=== PATIENT | female | born 1940 | race Caucasian/White ===

== ENCOUNTER 2018-11-04 08:56 | Emergency (ER) | payer OTHER ==
[~2018-11-04] VITALS: Ht 144.8 cm; Wt 61.2 kg
== END 2018-11-04 16:14 | disposition home or self-care (01) ==
LOC: ER 08:56
DX: K29.70 Gastritis, unspecified, without bleeding (principal)

== ENCOUNTER 2020-05-02 12:00 | Emergency (ER) | payer OTHER ==
[~2020-05-02] VITALS: Ht 144.8 cm; Wt 59.0 kg
[2020-05-02] MEDS ORDERED: LISINOPRIL20 MG (13:17)
[2020-05-02] MEDS ORDERED: NAPROXEN SODIU500 M2 (13:17)
[2020-05-02] MEDS ORDERED: MAXIMUM D3325 MCG (13:18)
== END 2020-05-02 21:21 | disposition home or self-care (01) ==
LOC: ER 12:00
DX: N39.0 Urinary tract infection, site not specified (principal); R31.29 Other microscopic hematuria; Z03.818 Encounter for observation for suspected exposure to other biological agents ruled out

== ENCOUNTER 2021-10-26 14:08 | Emergency (ER) | payer OTHER ==
[~2021-10-26] VITALS: Ht 144.8 cm; Wt 54.4 kg
[~2021-10-26 14:08] MED LIST: LISINOPRIL20 MG; MAXIMUM D3325 MCG; NAPROXEN SODIU500 M2
[2021-10-26] MEDS ORDERED: MECLIZINE HCL25 MG PO (18:28)
== END 2021-10-26 18:59 | disposition home or self-care (01) ==
LOC: ER 14:08
DX: S00.83XA Contusion of other part of head, initial encounter (principal); W18.30XA Fall on same level, unspecified, initial encounter; Y92.012 Bathroom of single-family (private) house as the place of occurrence of the external cause

== ENCOUNTER 2025-07-04 14:42 | Emergency (ER) | payer OTHER ==
[~2025-07-04] VITALS: Ht 149.9 cm; Wt 44.5 kg
[~2025-07-04 14:42] MED LIST changes: +MECLIZINE HCL25 MG PO
[2025-07-04] MEDS ORDERED: ACETAMINOPHEN 500 MG GEL..CAP PO STA (15:56)
[2025-07-04] MEDS ORDERED: KETOROLAC TROMETHAMINE 30 MG VIAL IM STA (15:57)
[2025-07-04 16:37] LABS: BASO % 0.9 % (0.1-1.2); EOS # 0.26 (0.04-0.54); EOS % 3.5 % (0.7-7.0); LYMPH # 2.66 (1.18-3.74); LYMPH % 35.7 % (19.3-53.1); MEAN PLATELET VOLUME 10.40 fl (9.4-12.4); MONO # 0.49 (0.24-0.82); MONO % 6.6 % (4.7-12.5); NEUT # 3.96 (1.56-6.13); NEUT % 53.2 % (34.0-71.1); RED CELL DISTRIBUTION WIDTH 14.2 % (11.6-14.4)
[2025-07-04 16:58] LABS: BUN CREA RATIO 21.0 (7.0-25.0); CREATININE SERUM 0.68 mg/dL (0.55-1.02); GFR 82.63; GLUCOSE FASTING 94.0 mg/dL (65-100); OSMOLALITY SERUM 287.0 MOSM/KG (275-295)
[2025-07-04] MEDS ORDERED: 8HR ARTHRITIS650 M1 PO (18:26)
[2025-07-04] MEDS ORDERED: AMOX1TAB5 PO (18:26)
== END 2025-07-04 18:55 | disposition home or self-care (01) ==
LOC: ER 14:42
PROVIDERS: Student in an Organized Health Care Education/Training Program
DX: J02.9 Acute pharyngitis, unspecified (principal); K13.79 Other lesions of oral mucosa